=== PATIENT | female | born 1985 | race Caucasian/White ===

== ENCOUNTER → 2019-11-21 11:17 | Outpatient (CLI) | payer OTHER, SELFPAY ==
--- NOTE | 2019-11-21 11:25 | XR_ITS ---
PROCEDURE: XR SHOULDER RT MIN 2V CLINICAL INDICATION: RT SHOULDER PAIN COMPARISON: No exams were available for comparison FINDINGS: No fracture, dislocation, lytic change, or blastic change evident. No significant degenerative change. No subacromial stenosis IMPRESSION: Negative right shoulder Dictated by: Sher Hogue MD 11/21/2019 11:53 Electronically signed by Sher Hogue MD in [place] 11/21/2019 11:53
== END ==
PROVIDERS: PCP Emergency Medicine; Visit Provider Nurse Practitioner Family
DX: M25.511 Pain in right shoulder (principal)
CPT/HCPCS: 73030

== ENCOUNTER → 2019-11-25 10:33 | Outpatient (CLI) | payer OTHER, SELFPAY ==
--- NOTE | 2019-11-25 10:35 | MR_ITS ---
PROCEDURE: MR SHOULDER RT WO CON CLINICAL INDICATION: SHOULDER PAIN Right shoulder pain with limited range of motion with tingling and numbness in the right upper extremity the COMPARISON: XR SHOULDER RT MIN 2V from 11/21/2019 TECHNIQUE: Routine multiplanar multi echo sequences are performed without gadolinium enhancement. FINDINGS: There is some slight increased T2 signal within the supraspinatus tendon with mild thickening suggesting mild tendinopathy/tendinosis the there is a small linear area of increased T2 signal within the supraspinatus tendon distally and could be related to an incomplete intrasubstance tear. The infraspinatus, subscapularis, and teres minor tendons appear intact. No evidence of labral tear. Bicipital tendon is in place. There is a small area of bone marrow edema involving the humeral head laterally measuring 9 mm. There is small amount of fluid in subcoracoid region. IMPRESSION: 1. Tendinopathy/tendinosis of the supraspinatus tendon with a curvilinear area of increased T2 signal within the distal aspect of the tendon suggesting an incomplete intrasubstance tear. 2. 10 mm area of increased T2 signal within the humeral head laterally. This could represent a bone contusion. Small area of bone marrow edema from other etiologies is a consideration as well in the absence of trauma 3. Small amount of fluid in the subcoracoid region suggesting bursitis Dictated by: Sher Hogue MD 11/27/2019 10:17 Electronically signed by Sher Hogue MD in [place] 11/27/2019 10:17
== END ==
PROVIDERS: PCP Family Medicine; Visit Provider Nurse Practitioner Family
DX: M25.511 Pain in right shoulder (principal)
CPT/HCPCS: 73221

== ENCOUNTER 2020-01-10 15:30 | Outpatient (RCR) | payer OTHER, SELFPAY ==
--- NOTE | 2019-12-16 11:31 | HMH.PTOPEV ---
PT Outpatient Evaluation Rehab PT Outpatient Evaluation Start: 12/16/19 10:55 Freq: Status: Active Protocol: Document 12/16/19 11:14 TIM (Rec: 12/16/19 11:31 TIM [id number]) Electronically Signed By Hal Cabrera, PT 12/16/19 11:14 Outpatient Therapy Subjective History Subjective History Pt reports h/o chronic R SH pain beginning ~ 10 yrs, however, reports exacerbation over the las ~4 months. Pt reports posterior R SH pain, originating around the scapula (medial border) and referring pain into R UT mm, and intermittent N&T into R hand. Recent MRI has revealed R SH supraspinatus tendinitis, and humeral head contusion. PMH: compression fx C7 Chief Complaint Pain,Stiff,Paresthesia, Weakness Symptom Type Ache,Sharp,Dull,Numbness, Tingling Symptoms Relieved By Rest/Positioning Symptoms Aggravated By Lifting Prior Functional Limitations Lifting,Desk Work/Reading, Sleeping Current Functional Limitations Lifting,Housework,Desk Work/ Reading,Sleeping Symptom Description Constant but Variable Level of pain today (0-10) 4 Pain scale - at its best (0-10) 3 Pain scale - at its worst (0-10) 6 Shoulder/Elbow Eval Shoulder Objective Measurements Palpation Tenderness tenderness over the bicipital tendon right shoulder exam standard Shoulder Palpation Findings Tenderness,Trigger Point, Muscle Guarding Shoulder Palpation Overall Comment 2-3/4 UT,SS INSERTION, LHB Posture Shoulder Posture Sitting Position (L) Rounded,(R) Rounded Shoulder Posture Standing Position (L) Rounded,(R) Rounded Scapula Posture Sitting Position (L) Protracted,(R) Protracted Scapular Posture Standing Position (L) Protracted,(R) Protracted Flexibilty Deficits Pectoralis Minor Muscle Length (R) Moderate Tightness,(L) Moderate Tightness Pectoralis Major Muscle Length (R) Moderate Tightness,(L) Moderate Tightness Upper Trapezius Muscle Length (R) Moderate Tightness Shoulder ROM Right Shoulder ROM Limitations Pain Shoulder Abduction Active Range of 0-170 Motion (degrees) Shoulder Flexion Active Range of Motion 0-170 (degrees) Query Text: Shoulder External Rotation Active Range 0-95 of Motion (degrees) Suadu
== END 2020-01-10 16:30 | disposition home or self-care (01) ==
LOC: PT 15:30
PROVIDERS: PCP Nurse Practitioner Family; Visit Provider Orthopaedic Surgery
DX: M67.911 Unspecified disorder of synovium and tendon, right shoulder (principal)
CPT/HCPCS: 20561; 97010; 97014; 97110; 97140; 97163; G0283

== ENCOUNTER 2021-08-19 17:33 | Emergency (ER) | payer OTHER, SELFPAY ==
[2021-08-19 18:25] VITALS: BP 134/71; PULSE 67; RESP 18; TEMP 36.9; O2SAT 98; BMI 30.9
[2021-08-19 18:48] LABS: UTC Strep Screen (Rapid) Negative (Negative)
--- NOTE | 2021-08-19 18:54 | HMH.EDUTC ---
[facility] [place] Disposition Clinical Impression: Pharyngitis Qualifiers: Pharyngitis/tonsillitis etiology: unspecified etiology Qualified Code(s): J02.9 - Acute pharyngitis, unspecified Disposition: Home, Self-Care Condition on Discharge: Good Instructions: DI for Pharyngitis/Tonsillopharyngitis -- Adult, Sore Throat, Preventing the Spread of Coronavirus Discharge Instructions Additional Instructions: Drink plenty of fluids. Take tylenol or ibuprofen for pain or fever. Take the medications as directed. Follow up with your regular doctor. GO TO THE ER FOR ANY WORSENING SYMPTOMS Quarantine until you know the results of your covid-19 test. If it is positive, the health department should call you and give you further instructions about your length of Quarantine and other things. Notify your school or workplace of your results and follow their instructions regarding return to work/school. Prescriptions: Amoxicillin [Amoxicillin 500mg Tab] 500 mg PO TID 10 Days #30 tab Transmission Status: Pending to [facility] predniSONE [Deltasone 10mg tablet] 10 mg PO BID 3 Days #6 tab Transmission Status: Pending to [facility] Referrals: Provider,Referral, [Primary Care Provider] - Time of Disposition: 18:58 Medical Decision Making - Medical Records Medical records reviewed: No: I reviewed the patient's medical records. - Chandana Inquiry Pt receiving controlled substance: No Vital Signs: 08/19/21 18:25 Temperature 98.4 F Temperature Source Oral Pulse Rate [Right Brachial] 67 Respiratory Rate 18 Blood Pressure [Right Arm] 134/71 Blood Pressure Mean [Right Arm] 92 Blood Pressure Source [Right Arm] Automatic Cuff Blood Pressure Position [Right Arm] Sitting 02 Sat by Pulse Oximetry 98 Oxygen Delivery Method Room Air - Lab Data Lab results reviewed: Yes: I reviewed the patient's lab results. Lab Results 08/19/21 18:43: Strep Scn Rapid Clinic Negative Orders (Tests/Meds): ORDERS Category Date Time Status Strep Screen Confirmation Stat Micro 08/19/21 18:43 Received [facility] [place] HPI - General Stated complaint: sore throat, prickly throat Time Seen by Provider: 08/19/21 18:54 Mode of Arrival: Ambulatory Source of Information: Patient Limitations: No Limitations Description of Symptoms (Recalled from Triage Doc. by RN): PATIENT C/O SORE THROAT THAT STARTED LAST NIGHT HEENT Symptoms (Recalled from RN notes): Yes Resp Symptoms (Recalled from RN notes): No Skin Symptoms (Recalled from RN notes): No MS Symptoms (Recalled from RN notes): No Functional Status (Recalled from RN notes): WNL - History of Present Illness Provider Complaint: She c/o sore throat since yesterday. She has had some chilling also, but no fever that she knows of. She has been vaccinated against covid-19. She denies any known exposure to covid-19 though. - Related Data Previous Rx's Medication Instructions Recorded Amoxicillin [Amoxicillin 500mg Tab] 500 mg PO TID 10 Days #30 tab 08/19/21 predniSONE [Deltasone 10mg tablet] 10 mg PO BID 3 Days #6 tab 08/19/21 Allergies Allergy/AdvReac Type Severity Reaction Status Date / Time tetanus and diphtheria Allergy Mild Verified 12/12/19 11:30 toxoids - Worker's Comp Is this a Worker's Comp case?: No [facility] History - Hepatitis A Screen Drug use history?: No High risk sexual behaviors?: No History of sexually transmitted infection?: No Currently employed?: No Childcare worker?: No Do you have indoor plumbing?: Yes Do you have electricity?: Yes Attestation statement:: This patient has been screened for Hepatitis A risk factors. I have reviewed the patient's past medical history: Yes Other Surgeries: Yes: No Previous Surgery - Social History Smoking Status: Never smoker Alcohol Intake: current Alcohol Intake Frequency:: holidays/special occasions only Occupational Status: employed Housing: house Household Members: family Family Hx:
[2021-08-19 19:03] VITALS: BP 134/71; PULSE 67; RESP 18; TEMP 36.9; O2SAT 98
== END 2021-08-19 19:10 | disposition home or self-care (01) ==
PROVIDERS: Emergency Provider Nurse Practitioner Family
DX: J02.9 Acute pharyngitis, unspecified (principal); Z20.822 Contact with and (suspected) exposure to COVID-19; Z88.7 Allergy status to serum and vaccine
CPT/HCPCS: 87880; 99203; C9803; G0463; U0003; U0005

== ENCOUNTER → 2021-12-25 12:47 | Outpatient (CLI) | payer OTHER, SELFPAY ==
[2021-12-25 13:25] LABS: Basophils # 0.1 K/mm3 (0-0.2); Basophils % 0.7 % (0.1-2.0); Eosinophils # 0.3 K/mm3 (0.0-0.4); Eosinophils % 4.4 % (0.1-12.0); Hematocrit 43.3 % (37.0-47.0); Hemoglobin 13.6 g/dL (12.2-16.2); Lymphocytes # 2.5 K/mm3 (0.7-4.5); Lymphocytes % 32.7 % (10-50); Mean Corpuscular HGB Conc 31.3 g/dL (31.8-35.4); Mean Corpuscular Volume 95.8 fl (81-99); Mean Platelet Volume 7.9 fl (7.4-10.4); Monocytes # 0.4 K/mm3 (0.1-1.0); Monocytes % 5.5 % (1.7-9.3); Neutrophils # 4.3 K/mm3 (1.8-7.8); Neutrophils % 56.7 % (37.0-80.0); Platelet Count 291 K/mm3 (142-424); Red Blood Count 4.52 M/mm3 (4.20-5.40); Red Cell Distribution Width 12.7 % (11.5-17.5); White Blood Count 7.7 K/mm3 (4.8-10.8)
[2021-12-25 13:57] LABS: Strep Scrn Group A (Rapid) Negative (Negative)
== END ==
PROVIDERS: PCP Family Medicine; Visit Provider Nurse Practitioner Family
DX: J02.9 Acute pharyngitis, unspecified (principal)
CPT/HCPCS: 36415; 85025; 87430

== ENCOUNTER → 2022-04-30 14:24 | Outpatient (CLI) | payer OTHER, SELFPAY | PROVIDERS: PCP Physician Assistant; Visit Provider Physician Assistant | DX: U07.1 COVID-19 (principal) | CPT/HCPCS: C9803; U0003; U0005 ==

== ENCOUNTER → 2023-02-05 14:56 | Outpatient (CLI) | payer OTHER, SELFPAY | PROVIDERS: PCP Physician Assistant; Visit Provider Physician Assistant | DX: R00.2 Palpitations (principal) | CPT/HCPCS: 93225; 93226 ==

== ENCOUNTER 2024-06-11 22:31 | Emergency (ER) | payer OTHER, SELFPAY ==
[2024-06-11 22:32] VITALS: BP 140/90; PULSE 70; RESP 18; TEMP 37; O2SAT 99; BMI 30.7
--- NOTE | 2024-06-11 22:59 | HMH.EDGENADL ---
Discharge Plan Disposition Patient Disposition: Home, Self-Care Condition: Good Chief Complaint: Skin/Abscess/Foreign Body Prescriptions Prescriptions: No Action ibuprofen 200 mg tablet 200 mg PO Q6H PRN metoprolol succinate 25 mg tablet extended release 24 hr 25 mg PO DAILY Patient Comments: TAKE ONE TABLET BY MOUTH EVERY DAY Referrals Follow up/Referrals: Citlalli Inman PA [Primary Care Provider] - See instructions Activity Restrictions/Add. Instructions Additional Instructions/Restrictions: You were given a dose of steroids while in the emergency department. You can take another dose of Benadryl to help with further swelling. Follow-up with your primary care provider for continued management and return for any new or worsening symptoms. Clinical Impressions Clinical Impression: Accidental bee sting Print Language Print Language: Occitan Discharge ED Provider: Brandie Dow General Adult HPI General Chief complaint: Skin/Abscess/Foreign Body Stated complaint: bee sting on face Time Seen by Provider: 06/11/24 22:40 Mode of Arrival: Ambulatory Source of Information: Patient Limitations: No Limitations Description of Symptoms (Recalled from ER Triage Doc. 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 Patient denies shortness of breath and states she does not have a known allergy to bees. Patient states that she typically has localized swelling and gets it treated with steroids in the past. She wanted to have it checked before it got worse. History of Present Illness HPI narrative: Patient is a 38-year-old female with past medical history of PVCs presenting with bee sting to her chin. She states that around 830, 2 hours prior to arrival she was moving her beehives [place] and a bee got into her head and stung her on the chin. She denies any allergies to the bee but she had a previous reaction when she was stung a couple of years ago on her eyebrow with subsequent significant facial swelling and she wanted to prevent this prompting presentation. She has some localized swelling and redness but denies any shortness of breath, chest pain or rash. Related Data Home Medications ?Medication ?Instructions ?Recorded ?Confirmed ibuprofen 200 mg tablet 200 mg PO Q6H PRN 03/24/23 03/24/23 metoprolol succinate 25 mg 25 mg PO DAILY 03/24/23 03/24/23 tablet,extended release 24 hr Allergies Allergy/AdvReac Type Severity Reaction Status Date / Time tetanus and diphtheria Allergy Mild Verified 03/24/23 15:18 toxoids PFSH [facility], 1928–1983 Disclaimer: The information contained in this section may have been updated after the patient was seen, as this information can be updated by other users. Social History Smoking Status: Never smoker alcohol intake: current alcohol intake frequency: holidays/special occasions only current occupational status: employed Travel in the last 8 weeks: None household members: family housing: house ROS Obtained: Yes Systems reviewed as appropriate & no additional complaints except as documented Physical Exam General General appearance: alert and in no apparent distress Head Head exam: atraumatic, normocephalic and other (Slight erythema over the chin area but no rash, foreign object) Respiratory Respiratory exam: Present normal lung sounds bilaterally; Absent respiratory distress Cardiovascular Cardiovascular exam: Present regular rate and normal rhythm Neurological Exam Neurological exam: Present alert and oriented X3 Medical Decision Making Medical Records Medical records reviewed: Yes I reviewed the patient's medical records. Chandana Inquiry Pt receiving controlled substance: No Chandana was queried for this patient: No Vital Signs: 06/11/24 22:32 Temperature 98.6 F Temperature Source Oral Pulse Rate [Left Radial] 70 Respiratory Rate 18 Blood Pressure [Left Arm] 140/90 Blood Pressure Mean [Left Arm] 106 Blood Pressure Source [Left Arm] Automatic Cuff Blood Pressure Position [Left Arm] Sitting 02 Sat by Pulse Oximetry 99 Oxygen Delivery Method Room Air Orders (Tests/Meds): ED MEDICATIONS Discontinued Medications Generic Name Dose Route Start Last Admin Trade Name Jbq PRN Reason Stop Dose Admin Famotidine 20 mg 06/11/24 22:52 Famotidine 20mg Tablet PO 06/11/24 22:53 ONCE ONE Methylprednisolone Sodium Succinate 125 mg 06/11/24 22:52 Methylprednisolone Sod Succ 125mg Vial IM 06/11/24 22:53 ONCE ONE Medical Decision Narrative: Patient is a 38-year-old female with past medical history of PVCs presenting with bee sting to the chin. She does have some erythema over her chin but does not have any prior history of allergy to bee stings and does not appear to be in anaphylaxis, no rash, no airway involvement, no hemodynamic instability. She does have a prior reaction of significant facial swelling after bee sting on her eyebrow and we will therefore give her some Solu-Medrol and Pepcid, she took Benadryl prior to arrival. Patient agreeable with plan and discharged in stable condition. Critical Care Critical Care Time Critical Care Time: No
[2024-06-11] MEDS: FAMOTIDINE 20MG TABLET 20 MG PO (23:00)
[2024-06-11] MEDS: METHYLPREDNISOLONE SOD SUCC 125MG VIAL 125 MG IM (23:00)
[2024-06-11 23:08] VITALS: BP 140/90; PULSE 87; RESP 16; TEMP 36.7; O2SAT 98
== END 2024-06-11 23:10 | disposition home or self-care (01) ==
PROVIDERS: Emergency Provider Emergency Medicine; PCP Physician Assistant
DX: T63.441A Toxic effect of venom of bees, accidental (unintentional), initial encounter (principal)
CPT/HCPCS: 96372; 99283; J2919